=== PATIENT | male | born 2000 | race African-American/Black ===

== ENCOUNTER 2022-11-11 14:47 | Emergency (ER) | payer MEDICAID ==
[~2022-11-11] VITALS: Ht 182.9 cm; Wt 93.2 kg
[2022-11-11 14:59] VITALS: TEMP 98
[2022-11-11 15:57] VITALS: BP 109/74; PULSE 79
== END 2022-11-11 16:00 | disposition home or self-care (01) ==
LOC: COL.ER 14:47
DX: S61.212A Laceration without foreign body of right middle finger without damage to nail, initial encounter (principal); Z28.310 Unvaccinated for COVID-19; W26.8XXA Contact with other sharp object(s), not elsewhere classified, initial encounter